=== PATIENT | male | born 1995 | race Caucasian/White ===

== ENCOUNTER → 2021-04-19 | Outpatient (REF) | payer OTHER ==
[2021-04-19 12:52] LABS: BASO # 0.1 10^3/uL (0.0-0.2); BASO % 1.2 % (0.0-1.0); EOS # 0.2 10^3/uL (0.0-0.5); EOS % 2.2 % (0.0-3.0); LYMPH # 1.6 10^3/uL (1.5-5.0); LYMPH % 20.5 % (24.0-44.0); MEAN CORPUSCULAR HEMOGLOBIN 27.9 pg (27.0-33.0); MEAN CORPUSCULAR HGB CONC 32.7 g/dl (32.0-36.5); MEAN CORPUSCULAR VOLUME 85.2 fl (80.0-96.0); MONO # 0.6 10^3/uL (0.0-0.8); MONO % 8.5 % (2.0-8.0); NEUTROPHILS # 5.1 10^3/uL (1.5-8.5); NEUTROPHILS % 66.8 % (36.0-66.0); PLATELET COUNT, AUTOMATED 174 10^3/uL (150-450); WHITE BLOOD COUNT 7.6 10^3/uL (4.0-10.0)
[2021-04-19 13:31] LABS: ALBUMIN 4.1 GM/DL (3.2-5.2); ALT/SGPT 37 U/L (12-78); BILIRUBIN,TOTAL 0.8 MG/DL (0.2-1.0); BLOOD UREA NITROGEN 13 MG/DL (7-18); CALCIUM LEVEL 9.5 MG/DL (8.5-10.1); CARBON DIOXIDE LEVEL 29 MEQ/L (21-32); CHLORIDE LEVEL 107 MEQ/L (98-107); CHOLESTEROL LEVEL 193 MG/DL (<200); CREATININE FOR GFR 0.95 MG/DL (0.70-1.30); GLOMERULAR FILTRATION RATE > 60.0 (>60); GLUCOSE, FASTING 86 MG/DL (70-100); HDL CHOLESTEROL 50 MG/DL (>40); LDL CHOLESTEROL 113 MG/DL (<100); NON-HDL-C 143 MG/DL; POTASSIUM SERUM 4.3 MEQ/L (3.5-5.1); SODIUM LEVEL 141 MEQ/L (136-145); TOTAL PROTEIN 7.4 GM/DL (6.4-8.2); TRIGLYCERIDES LEVEL 152 MG/DL (<150)
== END ==
LOC: M SFHCADAM 11:24
PROVIDERS: ATTEND Physician Assistant Medical
DX: F63.81 Intermittent explosive disorder (principal); E66.01 Morbid (severe) obesity due to excess calories; Z83.3 Family history of diabetes mellitus; F32.1 Major depressive disorder, single episode, moderate

== ENCOUNTER → 2021-07-28 | Outpatient (CLI) | payer OTHER ==
--- NOTE | 2021-07-28 11:03 | REP ---
INDICATION: EPIGASTRIC PAIN COMPARISON: None TECHNIQUE: Real time B-mode alicea scale ultrasound examination using curved array transducer. FINDINGS: Liver, spleen, and pancreas are normal in contour, size, echogenicity, and overall appearance. No focal hepatic, splenic or pancreatic lesions are identified. Gallbladder is normal without gallstones, wall thickening, or pericholecystic fluid. No biliary ductal dilatation is appreciated and the common bile duct measures 4.1 mm in diameter. The bilateral kidneys are normal in reniform shape without hydronephrosis or obvious abnormality. Right kidney measures 10.9 x 5.4 x 5.5 cm. Left kidney measures 11.4 x 5.9 x 5.9 cm. Abdominal aorta appears normal. No ascites. IMPRESSION: Essentially normal age-appropriate complete abdominal ultrasound. <Electronically signed by Coleman Trujillo > 07/28/21 1100
== END ==
LOC: M RAD 09:50
PROVIDERS: ATTEND Pediatrics
DX: R10.13 Epigastric pain (principal)

== ENCOUNTER 2024-02-09 04:36 | Emergency (ER) | payer OTHER ==
[2024-02-09] MEDS ORDERED: METH30CA PO (04:53)
[2024-02-09] MEDS ORDERED: CITA20TA7 PO (04:53)
[2024-02-09] MEDS ORDERED: KETOROLAC 30 MG/ML 1ML VIAL IV ONE (07:20)
[2024-02-09] MEDS ORDERED: AMOX500C PO (07:28)
[2024-02-09] MEDS: CIPROFLOXACIN HC OTIC SUSPENSION AU ONE (07:30)
[2024-02-09] MEDS: KETOROLAC 30 MG/ML 1ML VIAL IM ONE (07:30)
[2024-02-09 07:35] VITALS: BP 162/90; TEMP 99.2; O2SAT 100
== END 2024-02-09 07:52 | disposition home or self-care (01) ==
LOC: EDBD 04:36 → M ED 04:36
DX: H60.8X3 Other otitis externa, bilateral (principal); Z79.2 Long term (current) use of antibiotics; Z79.899 Other long term (current) drug therapy
CPT/HCPCS: 96372; 99284; J1885